=== PATIENT | male | born 1985 | race African-American/Black ===

== ENCOUNTER 2016-07-31 07:35 | Emergency (ER) | payer MEDICAID ==
[~2016-07-31] VITALS: Ht 180.3 cm; Wt 77.0 kg
[~2016-07-31 07:35] MED LIST: BACTRIM; IBUPROFEN; MOTRIN
[2016-07-31] MEDS ORDERED: KETOROLAC 60MG/2ML VIAL IM ONE (09:00)
[2016-07-31] MEDS ORDERED: ONDANSETRON 4MG ODT PO ONE (09:00)
[2016-07-31 09:49] VITALS: BP 117/74
== END 2016-07-31 09:51 | disposition home or self-care (01) ==
LOC: ER 08:13
DX: R51 Headache (principal); F12.10 Cannabis abuse, uncomplicated
CPT/HCPCS: 96372; 99283; J1885; Q0162; Z7610

== ENCOUNTER 2017-02-20 18:41 | Emergency (ER) | payer OTHER ==
[~2017-02-20] VITALS: Ht 180.3 cm; Wt 77.0 kg
[~2017-02-20 18:41] MED LIST changes: -BACTRIM
[2017-02-20 22:58] VITALS: BP 134/89
[2017-02-21] MEDS ORDERED: TETANUS, DIPHTHERIA, PERTUSSIS VAC/PF 0.5ML (>7YR OLD) IM ONE (03:17)
[2017-02-21] MEDS ORDERED: LIDOCAINE HCL/EPINEPHRINE 0.5%-EPI 1:200,000 50 ML VIAL INFIL NR (03:17)
[2017-02-21] MEDS ORDERED: IBUPROFEN 600MG TABLET ONE (04:43)
== END 2017-02-21 05:27 | disposition home or self-care (01) ==
LOC: ER 18:45
DX: K13.0 Diseases of lips (principal); F12.10 Cannabis abuse, uncomplicated
CPT/HCPCS: 10060; 99283

== ENCOUNTER 2021-10-07 21:04 | Emergency (ER) | payer OTHER ==
[~2021-10-07] VITALS: Ht 180.3 cm; Wt 79.0 kg
[2021-10-07 21:09] VITALS: BP 140/82
[2021-10-07] MEDS ORDERED: LIDOCAINE HCL/PF 1% 10 MG/ML 5ML VIAL INFIL ONE (23:30)
[2021-10-07] MEDS ORDERED: HYDROCODONE/ACETAMINOPHEN 5/325MG TABLET PO ONE (23:30)
[2021-10-07] MEDS ORDERED: BACITRACIN ZINC OINT UDPKT TOP ONE (23:30)
[2021-10-07] MEDS ORDERED: TETANUS, DIPHTHERIA, PERTUSSIS VAC/PF 0.5ML (>10YR OLD) IM ONE (23:30)
[2021-10-08] MEDS ORDERED: IBUP-2029 MT (00:50)
[2021-10-08] MEDS ORDERED: BO1 TP (00:50)
== END 2021-10-08 04:27 | disposition home or self-care (01) ==
LOC: ER 21:04
DX: S91.012A Laceration without foreign body, left ankle, initial encounter (principal); W26.8XXA Contact with other sharp object(s), not elsewhere classified, initial encounter; Y93.55 Activity, bike riding; Y92.488 Other paved roadways as the place of occurrence of the external cause; R03.0 Elevated blood-pressure reading, without diagnosis of hypertension; F12.90 Cannabis use, unspecified, uncomplicated
CPT/HCPCS: 12001; 73610; 73630; 90471; 90715; 99284; J3490

== ENCOUNTER 2021-10-18 00:50 | Emergency (ER) | payer OTHER ==
[~2021-10-18] VITALS: Ht 180.3 cm; Wt 76.0 kg
[~2021-10-18 00:50] MED LIST changes: +BO1 TP; +IBUP-2029 MT
[2021-10-18 01:29] VITALS: BP 105/80
== END 2021-10-18 04:08 | disposition home or self-care (01) ==
LOC: ER 00:50
DX: Z48.02 Encounter for removal of sutures (principal)
CPT/HCPCS: 99281

== ENCOUNTER 2022-10-08 23:12 | Emergency (ER) | payer OTHER ==
[~2022-10-08] VITALS: Ht 180.3 cm; Wt 79.5 kg
[2022-10-08 23:24] VITALS: BP 122/80
[2022-10-09] MEDS ORDERED: HYDR-4001 MT (02:10)
[2022-10-09] MEDS ORDERED: IBUP-2029 MT (02:10)
== END 2022-10-09 03:06 | disposition home or self-care (01) ==
LOC: ER 23:12
DX: S63.502A Unspecified sprain of left wrist, initial encounter (principal); F12.10 Cannabis abuse, uncomplicated; X58.XXXA Exposure to other specified factors, initial encounter; Y93.89 Activity, other specified; Y92.89 Other specified places as the place of occurrence of the external cause; Y99.8 Other external cause status
CPT/HCPCS: 29125; 73100; 73120; 99284